=== PATIENT | female | born 2000 | race African-American/Black ===

== ENCOUNTER 2021-11-28 08:09 | Emergency (ER) | payer MEDICAID ==
[~2021-11-28] VITALS: Ht 157.5 cm; Wt 62.0 kg
[2021-11-28 08:18] VITALS: BP 133/88
[2021-11-28] MEDS ORDERED: ACETAMINOPHEN 325MG TABLET PO ONE (08:30)
== END 2021-11-28 09:39 | disposition home or self-care (01) ==
LOC: ER 08:37
DX: M79.645 Pain in left finger(s) (principal)
CPT/HCPCS: 73140; 99283